=== PATIENT | female | born 1955 | race Caucasian/White ===

== ENCOUNTER 2016-10-16 05:46 | Day surgery (SDC) | payer MEDICARE, MEDICAID ==
[~2016-10-16] VITALS: Ht 160 cm; Wt 48.2 kg
[~2016-10-16 05:46] MED LIST: ASCO500 PO; ASPI81 PO; CALC-461 PO; CLON1 PO; DENO60DI SQ; DOCU250C91 PO; DiphenhydrAMINE HCL 50 MG/ML VIAL IVP ONE; FAMO20 PO; FERR-89 PO; FURO20 PO; FentaNYL CITRATE-PF 100 MCG/2 ML VIAL IVP ONE; HEPARIN SODIUM,PORCINE 1,000 UNITS/ML 10 ML VIAL IVP ONE; KDUR10 PO; LEVO25TA4 PO; LIDOCAINE HCL/PF 2% 5 ML VIAL IM ONE; MEGACE PO; MIRALAX PO; MULT-1192 PO; NALOXONE HCL 0.4 MG/ML VIAL IVP ONE; NEOSTIGMINE METHYLSULFATE 1 MG/ML 10 ML VIAL IVP ONE; ONDANSETRON HCL 4 MG/2 ML VIAL IVP ONE; PROPOFOL 1% 20 ML VIAL IVP ONE; PSYL0.4C PO; ROCURONIUM BROMIDE 10 MG/ML 5 ML VIAL IVP ONE; VITAD1000 PO
[2016-10-16] MEDS ORDERED: RINGERS SOLUTION,LACTATED 1,000 ML IV ONE ×2 (05:48→07:30)
[2016-10-16 06:41] LABS: BASOPHILS # (AUTO) 0.02 K/uL (0.00-0.20); BASOPHILS % (AUTO) 0.3 % (0.0-2.0); EOSINOPHILS # (AUTO) 0.11 K/uL (0.00-0.70); EOSINOPHILS % (AUTO) 1.57 % (1.0-6.0); HEMATOCRIT 38.2 % (36-46); HEMOGLOBIN 12.7 g/dL (12.0-16.0); LYMPHOCYTES # (AUTO) 1.7 K/uL (1.0-4.8); LYMPHOCYTES % (AUTO) 24.5 % (22.0-44.0); MEAN CORPUSCULAR HGB CONC 33.3 G/dL (31.0-37.0); MEAN CORPUSCULAR VOLUME 90 fL (80-100); MONOCYTES # (AUTO) 0.4 K/uL (0.1-1.0); MONOCYTES % (AUTO) 5.8 % (2.0-9.0); NEUTROPHILS # (AUTO) 4.7 K/uL (1.8-7.7); NEUTROPHILS % (AUTO) 67.9 % (40.0-70.0); PLATELET COUNT (AUTO) 128 K/uL (150-450); RED BLOOD CELL COUNT(AUTO) 4.24 MIL/uL (4.00-5.20); RED CELL DISTRIBUTION WIDTH 13.1 % (11.5-14.5)
[2016-10-16 07:02] LABS: ANION GAP 6 mmol/L (8-16); CALCIUM, TOTAL 9.4 mg/dL (8.8-10.5); CARBON DIOXIDE 31 mmol/L (22-29); CHLORIDE 109 mmol/L (98-107); CREATININE 0.78 mg/dL (0.60-1.30); GLOMERULAR FILTR. RATE CALC > 60 mL/min (>60); POTASSIUM 4.2 mmol/L (3.5-5.1); SODIUM SERUM 146 mmol/L (136-145); UREA NITROGEN, BLOOD 18 mg/dL (7-18)
[2016-10-16 07:08] LABS: ALANINE AMINOTRANSFERASE 169 U/L (12-78); ALBUMIN 3.7 g/dL (3.4-5.0); ASPARTATE AMINOTRANSFERASE 97 U/L (15-37); BILIRUBIN,TOTAL 0.4 mg/dL (0.1-1.0); TOTAL PROTEIN, SERUM 7.3 g/dL (6.4-8.2)
[2016-10-16] MEDS ORDERED: MEPERIDINE-PF 25 MG/ML SYRINGE IVP PRN (07:30)
[2016-10-16] MEDS ORDERED: FentaNYL CITRATE-PF 100 MCG/2 ML VIAL IVP PRN (07:30)
[2016-10-16] MEDS ORDERED: HYDROmorphone 2 MG/ML SYRINGE IVP PRN (07:30)
[2016-10-16] MEDS ORDERED: AMPICILLIN SODIUM 1 GM/VIAL ONE (07:49)
[2016-10-16] MEDS ORDERED: OXYGEN THERAPY IH SCH (08:00)
== END 2016-10-16 14:30 | disposition home or self-care (01) ==
LOC: SURGERY 05:46 → EDSTATUS 07:30 → SURGERY 14:30
PROVIDERS: ATTEND Dentist General Practice
DX: K05.30 Chronic periodontitis, unspecified (principal); K02.9 Dental caries, unspecified; E03.9 Hypothyroidism, unspecified; G80.9 Cerebral palsy, unspecified; D64.9 Anemia, unspecified; F41.9 Anxiety disorder, unspecified; G31.84 Mild cognitive impairment of uncertain or unknown etiology; K27.9 Peptic ulcer, site unspecified, unspecified as acute or chronic, without hemorrhage or perforation; K21.9 Gastro-esophageal reflux disease without esophagitis; Z79.82 Long term (current) use of aspirin; Z79.899 Other long term (current) drug therapy; Z98.890 Other specified postprocedural states
CPT/HCPCS: 36415; 41899; 71010; 80053; 85025; 85610; 85730; 93005; J0290; J7120; J1200; J1644; J2310; J2405; J2704; J3010; J3490